=== PATIENT | female | born 1965 | race American Indian/Alaskan Native ===

== ENCOUNTER 2017-12-12 07:51 | Day surgery (SDC) | payer BC ==
[2017-12-09 10:20] VITALS: BMI 32.5
[2017-12-12] MEDS ORDERED: Propofol 10 mg/ml Inj (20 ML) ONE (08:54)
[2017-12-12] MEDS ORDERED: Sodium Chloride 0.9% 1,000 ML IV SCH (09:00)
[2017-12-12 11:06] VITALS: BP 114/72; PULSE 59; RESP 16; TEMP 97.4; O2SAT 98
== END 2017-12-12 11:03 | disposition home or self-care (01) ==
LOC: ENDO 07:51
PROVIDERS: ATTEND Internal Medicine Gastroenterology
DX: Z12.11 Encounter for screening for malignant neoplasm of colon (principal); D12.2 Benign neoplasm of ascending colon; K64.1 Second degree hemorrhoids
CPT/HCPCS: 45380; 88305; J2704; J7030; J7040